=== PATIENT | male | born 2000 | race African-American/Black ===

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

== ENCOUNTER 2025-02-11 06:04 | Emergency (ER) | payer MEDICAID, OTHER ==
[~2025-02-11] VITALS: Ht 170.2 cm; Wt 63.0 kg
[~2025-02-11 06:04] MED LIST changes: +IBUP-2028 MT; +TAMS-54 MT
[2025-02-11 06:08] VITALS: TEMP 37; O2SAT 99
[2025-02-11 07:27] VITALS: O2SAT 98
[2025-02-11 07:29] VITALS: BP 126/71; PULSE 77; RESP 15
[2025-02-11] MEDS: IBUPROFEN 600MG TABLET PO ONE (07:29)
== END 2025-02-11 07:33 | disposition home or self-care (01) ==
LOC: ER 06:04
DX: M79.674 Pain in right toe(s) (principal); J45.909 Unspecified asthma, uncomplicated; F12.90 Cannabis use, unspecified, uncomplicated; X58.XXXA Exposure to other specified factors, initial encounter; Y93.66 Activity, soccer; Y92.89 Other specified places as the place of occurrence of the external cause; Y99.8 Other external cause status
CPT/HCPCS: 99283; 29515; 73660; A6449